=== PATIENT | male | born 1965 | race Caucasian/White ===

== ENCOUNTER 2017-01-30 21:32 | Emergency (ER) | payer MEDICAID ==
[2017-01-30 21:56] LABS: APPEARANCE CLEAR (CLEAR); BILIRUBIN NEGATIVE (NEGATIVE); COLOR STRAW (YELLOW); GLUCOSE 1000 mg/dL (NEGATIVE); KETONE NEGATIVE (NEGATIVE); NITRITE NEGATIVE (NEGATIVE); PROTEIN NEGATIVE (NEGATIVE); SPECIFIC GRAVITY 1.015 (1.005-1.020); UROBILINOGEN NORMAL (NORMAL)
[2017-01-30 21:59] LABS: WHITE CELLS - URINE RARE /hpf (0-5)
== END 2017-01-31 00:10 | disposition home or self-care (01) ==
LOC: D.ER 21:32
PROVIDERS: Family Medicine
DX: E11.9 Type 2 diabetes mellitus without complications (principal); Z91.14 Patient's other noncompliance with medication regimen; F17.200 Nicotine dependence, unspecified, uncomplicated

== ENCOUNTER 2018-06-17 06:24 | Outpatient (CLI) | payer MEDICARE ==
[2018-06-16 12:16] LABS: BASOPHILS 0.3 % (0-2); EOSINOPHILS 2.1 % (0-7); HEMATOCRIT 45.8 % (42.0-54.0); HEMOGLOBIN 16.4 g/dL (13.5-17.5); IMMATURE GRANULOCYTES 0.7 % (0-5); LYMPHOCYTES 28.2 % (15-50); MCH 32.5 pg (26.0-34.0); MCHC 35.8 g/dL (31.0-37.0); MCV 90.7 fL (80.0-100.0); MONOCYTES 11.8 % (2-11); NEUTROPHILS 56.9 % (40-80); PLATELET COUNT 330 10x3/uL (130-400); RBC 5.05 10x6/uL (4.20-6.10); WBC 14.5 10x3/uL (4.8-10.8)
[2018-06-16 12:26] LABS: CALC OSMOLALITY 286 mosm/kg (275-300); CARBON DIOXIDE 27.7 mmol/L (21.0-32.0); CHLORIDE - SERUM 101 mmol/L (98-107); CREATININE - SERUM 0.8 mg/dL (0.6-1.3); GLUCOSE 284 mg/dL (74-106); POTASSIUM - SERUM 4.1 mmol/L (3.5-5.1); SODIUM 139 mmol/L (136-145); UREA NITROGEN 9 mg/dL (7-18); eGFR NON AFRICAN AMERICAN > 90 mL/min (90-120)
[~2018-06-17] VITALS: Ht 193 cm; Wt 111.1 kg
[~2018-06-17 06:24] MED LIST: GLIPIZIDE10 MG PO; MOBIC7.5 MG PO
--- NOTE | 2018-06-17 06:51 | NUR ---
0666 DR AHUJA NOTIFIED OF PT'S WBC OF 14.5 AND IS AWARE THAT PT HAS A PRODUCTIVE COUGH WITH YELLOW SPUTUM. PT STATES THAT HE HAS BEEN ON ABX & COUGH SYRUP FOR A WEEK. PT ALSO HAS A SORE AROUND HIS UMBILICUS OF UNKNOWN ORIGIN THAT IS RED AND BROKEN DOWN AND THIS WAS REPORTED TO .
[2018-06-17 08:11] VITALS: BP 135/75; Ht 193 cm; Wt 111.1 kg
--- NOTE | 2018-06-17 08:32 | NUR ---
[address] AHUJA AND SAID TO GET PT READY FOR SURGERY. 0810 PT COUGHING NON STOP. ANESTHESIA REQUESTED TO SEE PT. FLOYD GARCIA CRNA TO SEE PT. 8260 FLOYD GARCIA CRNA HERE TO TALK TO PATIENT ABOUT SURGERY BEING CANCELLED DUE TO HIS COUGH AND HIGH WBC. WAITING FOR ORDERS
--- NOTE | 2018-06-17 08:52 | NUR ---
[address] AHUJA TO DC IV AND DISCHARGE PT.
--- NOTE | 2018-06-17 08:55 | NUR ---
30558 IV DC'D. PRESSURE HELD UNTIL BLEEDING STOPPED. BANDAID APPLIED. 3852 PT DISCHARGED.
== END 2018-06-17 06:25 | disposition home or self-care (01) ==
LOC: D.OPS 06:24 → EDSTATUS 08:00 → D.OPS 08:59
PROVIDERS: ATTEND Surgery
DX: K43.9 Ventral hernia without obstruction or gangrene (principal); Z53.09 Procedure and treatment not carried out because of other contraindication; Z01.812 Encounter for preprocedural laboratory examination

== ENCOUNTER 2018-09-30 05:30 | Day surgery (SDC) | payer MEDICARE ==
[2018-09-29 10:31] LABS: CALC OSMOLALITY 275 mosm/kg (275-300); CARBON DIOXIDE 30.7 mmol/L (21.0-32.0); CHLORIDE - SERUM 103 mmol/L (98-107); CREATININE - SERUM 0.7 mg/dL (0.6-1.3); POTASSIUM - SERUM 4.4 mmol/L (3.5-5.1); SODIUM 136 mmol/L (136-145); UREA NITROGEN 16 mg/dL (7-18); eGFR NON AFRICAN AMERICAN > 90 mL/min (90-120)
[2018-09-29 10:32] LABS: GLUCOSE 156 mg/dL (74-106)
[2018-09-29 10:36] LABS: BASOPHILS 0.4 % (0-2); EOSINOPHILS 2.8 % (0-7); HEMATOCRIT 48.5 % (42.0-54.0); HEMOGLOBIN 17.3 g/dL (13.5-17.5); IMMATURE GRANULOCYTES 0.4 % (0-5); LYMPHOCYTES 38.8 % (15-50); MCH 32.7 pg (26.0-34.0); MCHC 35.7 g/dL (31.0-37.0); MCV 91.7 fL (80.0-100.0); MEAN PLATELET VOLUME 10.4 fL (7.4-10.4); MONOCYTES 10.4 % (2-11); NEUTROPHILS 47.2 % (40-80); RBC 5.29 10x6/uL (4.20-6.10); RDW 12.6 % (11.5-14.5); WBC 10.4 10x3/uL (4.8-10.8)
[2018-09-29 10:38] LABS: PLATELET COUNT 251 10x3/uL (130-400)
[~2018-09-30] VITALS: Ht 190.5 cm; Wt 122.0 kg
--- NOTE | ~2018-09-30 | OP ---
PATIENT NAME: RADHA GIBSON MEDICAL RECORD: [id number] :61 LOCATION:D.OPS ADMISSION DATE: SURGEON: BENNIE AHUJA MD DATE OF OPERATION: 09/30/2018 PREOPERATIVE DIAGNOSES: 1. Incarcerated ventral hernia. 2. Tobacco dependence syndrome. 3. Diabetes mellitus. POSTOPERATIVE DIAGNOSES: 1. Incarcerated ventral hernia. 2. Tobacco dependence syndrome. 3. Diabetes mellitus. PROCEDURE: Incarcerated ventral hernia repair with 4.3 cm Ventrio mesh. SURGEON: Bennie Ahuja MD REPORT OF PROCEDURE: The patient's abdomen was prepped and draped in sterile fashion. A longitudinal incision was made just above the umbilicus in the midline. Electrocautery was then used to dissect through the subcutaneous tissues. As we came down, we encountered a hernia sac, which had incarcerated omental fat within it. This hernia sac extended far out to the left abdomen. We ended up dissecting this all free and we were able to eviscerate this through the skin and took down all the attachments off of the fascia. The omentum was incarcerated and could not be reduced through the small opening. Using multiple clamp and tie technique, we were able to transect through the omentum near its herniation and this omentum was removed. The fascial defect was about 1.3 cm in greatest diameter. We freed up the fascia above and below the defect and make sure to clean the fascia on its edges. Due to the patient's large size, we elected to go ahead and place a small hernia patch. This hernia patch was 4.3 cm Ventralight. This was inserted in an underlay fashion and sutured down on all 4 sides using interrupted 0 Prolenes. We then irrigated out the wound with normal saline and any bleeding that was found was treated with electrocautery or with 3-0 silk ties. The fascia was then closed transversely overlying the mesh using running 0 Vicryl. The subcutaneous tissues were infused with a total of 10 mL of 0.25% Marcaine with epinephrine and then reapproximated with interrupted 3-0 Vicryls. The skin was closed with running subcutaneous 5-0 Monocryl and dressed appropriately. COMPLICATIONS: None. CONDITION: Stable. ANESTHESIA: General endotracheal and local. BLOOD LOSS: 30 mL. TRANSINT:[id number] Voice Confirmation ID: [id number] DOCUMENT ID: [id number] OPERATIVE REPORT [id number] RADHA GIBSON CHRISTIAN MD CC: JOSUE MORENO DO [id number] DICTATION DATE: 09/30/18904 WASTE REMOVALIST: 09/30/18 1054 [facility] [address] [id number]
[~2018-09-30 05:30] MED LIST changes: +BASAGLAR K100 UNIT/1 SC
[2018-09-30 06:54] VITALS: BP 141/74; Ht 190.5 cm; Wt 122.0 kg
[2018-09-30] MEDS ORDERED: HYDROCODON-ACE1 EA10 PO (08:58)
--- NOTE | 2018-09-30 09:14 | NUR ---
OPA IN AIRWAY ON ADMIT
--- NOTE | 2018-09-30 10:12 | NUR ---
0950-RECD TO ROOM FROM PACU. DROWSY, AROUSES EASILY. TAKING ICE CHIPS. O2 ON AT 2L PER NC. ENCOURAGED TO DEEP BREATHE AND COUGH.
--- NOTE | 2018-09-30 11:19 | NUR ---
1120-DISCHARGE INSTRUCTIONS REVIEWED. IV D/C. DRESSING. 1125-STATES PAIN IS EASING TO A 2. 1126-D/C HOME VIA WHEELCHAIR WITH .
== END 2018-09-30 11:26 | disposition home or self-care (01) ==
LOC: D.OPS 05:30
PROVIDERS: ATTEND Surgery
DX: K43.6 Other and unspecified ventral hernia with obstruction, without gangrene (principal)

== ENCOUNTER 2018-10-03 13:22 | Emergency (ER) | payer MEDICARE ==
[~2018-10-03] VITALS: Ht 190.5 cm; Wt 121.4 kg
[~2018-10-03 13:22] MED LIST changes: +HYDROCODON-ACE1 EA10 PO
[2018-10-03 13:43] VITALS: Ht 190.5 cm; Wt 121.4 kg
[2018-10-03 14:38] LABS: APPEARANCE CLEAR (CLEAR); BILIRUBIN NEGATIVE (NEGATIVE); COLOR YELLOW (YELLOW); GLUCOSE NEGATIVE (NEGATIVE); KETONE NEGATIVE (NEGATIVE); NITRITE NEGATIVE (NEGATIVE); PROTEIN NEGATIVE (NEGATIVE); SPECIFIC GRAVITY 1.015 (1.005-1.020); UROBILINOGEN NORMAL (NORMAL)
[2018-10-03 14:56] LABS: BASOPHILS 0.2 % (0-2); EOSINOPHILS 1.8 % (0-7); HEMATOCRIT 48.5 % (42.0-54.0); HEMOGLOBIN 17.3 g/dL (13.5-17.5); IMMATURE GRANULOCYTES 0.3 % (0-5); LYMPHOCYTES 23.2 % (15-50); MCHC 35.7 g/dL (31.0-37.0); MCV 92.6 fL (80.0-100.0); MEAN PLATELET VOLUME 10.2 fL (7.4-10.4); MONOCYTES 12.6 % (2-11); NEUTROPHILS 61.9 % (40-80); PLATELET COUNT 234 10x3/uL (130-400); RBC 5.24 10x6/uL (4.20-6.10); RDW 12.4 % (11.5-14.5); WBC 15.4 10x3/uL (4.8-10.8)
[2018-10-03 15:07] LABS: APTT 59.5 SECONDS (22.8-39.4); INR 1.26 (0.85-1.17); PROTIME 15.2 SECONDS (11.6-15.0)
[2018-10-03 15:17] LABS: ALBUMIN 3.4 g/dL (3.4-5.0); ALKALINE PHOSPHATASE 64 U/L (46-116); ALT (SGPT) 6 U/L (10-68); BILIRUBIN - TOTAL 0.72 mg/dL (0.2-1.3); CALCIUM 8.7 mg/dL (8.5-10.1); CARBON DIOXIDE 27.4 mmol/L (21.0-32.0); CREATININE - SERUM 0.3 mg/dL (0.6-1.3); PROTEIN - SERUM 6.5 g/dL (6.4-8.2); UREA NITROGEN 17 mg/dL (7-18); eGFR NON AFRICAN AMERICAN > 90 mL/min (90-120)
[2018-10-03 15:30] LABS: CALC OSMOLALITY 277 mosm/kg (275-300); CHLORIDE - SERUM 102 mmol/L (98-107); POTASSIUM - SERUM 4.1 mmol/L (3.5-5.1); SODIUM 138 mmol/L (136-145)
[2018-10-03 15:34] LABS: GLUCOSE 99 mg/dL (74-106)
[2018-10-03] MEDS ORDERED: CLEOCIN HCL300 MG PO (15:36)
[2018-10-03 16:17] VITALS: BP 148/73
== END 2018-10-03 16:18 | disposition home or self-care (01) ==
LOC: D.ER 13:22
PROVIDERS: Family Medicine
DX: L76.82 Other postprocedural complications of skin and subcutaneous tissue (principal)

== ENCOUNTER 2019-06-22 00:03 | Emergency (ER) | payer MEDICARE ==
[~2019-06-22] VITALS: Ht 190.5 cm; Wt 121.4 kg
[~2019-06-22 00:03] MED LIST changes: +CLEOCIN HCL300 MG PO
[2019-06-22 00:07] VITALS: Ht 190.5 cm; Wt 121.4 kg
[2019-06-22] MEDS ORDERED: EC-NAPROSYN500 MG PO (01:19)
[2019-06-22 01:45] VITALS: BP 148/87
== END 2019-06-22 01:45 | disposition home or self-care (01) ==
LOC: D.ER 00:03
DX: M17.11 Unilateral primary osteoarthritis, right knee (principal); E11.9 Type 2 diabetes mellitus without complications; J45.909 Unspecified asthma, uncomplicated; K21.9 Gastro-esophageal reflux disease without esophagitis; Z72.0 Tobacco use; Z79.4 Long term (current) use of insulin; Z79.84 Long term (current) use of oral hypoglycemic drugs

== ENCOUNTER 2019-12-10 17:20 | Emergency (ER) | payer MEDICARE ==
[~2019-12-10 17:20] MED LIST changes: +EC-NAPROSYN500 MG PO
[2019-12-10 17:35] VITALS: Ht 190.5 cm
[2019-12-10 18:13] LABS: BASOPHILS 0.5 % (0-2); EOSINOPHILS 4.3 % (0-7); HEMATOCRIT 51.4 % (42.0-54.0); HEMOGLOBIN 17.7 g/dL (13.5-17.5); IMMATURE GRANULOCYTES 0.3 % (0-5); LYMPHOCYTES 31.5 % (15-50); MCH 32.4 pg (26.0-34.0); MCHC 34.4 g/dL (31.0-37.0); MCV 94.1 fL (80.0-100.0); MEAN PLATELET VOLUME 10.3 fL (7.4-10.4); MONOCYTES 14.9 % (2-11); NEUTROPHILS 48.5 % (40-80); PLATELET COUNT 237 10x3/uL (130-400); RBC 5.46 10x6/uL (4.20-6.10); RDW 12.8 % (11.5-14.5); WBC 10.7 10x3/uL (4.8-10.8)
[2019-12-10 18:25] LABS: CALC OSMOLALITY 286 mosm/kg (275-300); CALCIUM 8.9 mg/dL (8.5-10.1); CARBON DIOXIDE 30.3 mmol/L (21.0-32.0); CHLORIDE - SERUM 102 mmol/L (98-107); GLUCOSE 250 mg/dL (74-106); POTASSIUM - SERUM 4.3 mmol/L (3.5-5.1); SODIUM 139 mmol/L (136-145); UREA NITROGEN 14 mg/dL (7-18); eGFR NON AFRICAN AMERICAN 82 mL/min (90-120)
[2019-12-10 18:42] LABS: ALBUMIN 3.8 g/dL (3.4-5.0); ALKALINE PHOSPHATASE 88 U/L (30-120); ALT (SGPT) 44 U/L (10-68); BILIRUBIN - TOTAL 0.44 mg/dL (0.2-1.3); CKMB 1.8 U/L (0.0-3.6); CREATINE KINASE 96 UL (21-232); PRO BNP 30 pg/mL (0-125); PROTEIN - SERUM 7.2 g/dL (6.4-8.2)
[2019-12-10 18:43] LABS: TROPONIN-I < 0.017 ng/mL (0.000-0.060)
[2019-12-10] MEDS ORDERED: PROAIR HFA8.5 G1 INH (19:38)
[2019-12-10 20:38] VITALS: BP 170/98
== END 2019-12-10 20:38 | disposition home or self-care (01) ==
LOC: D.ER 17:20
PROVIDERS: Family Medicine
DX: J45.901 Unspecified asthma with (acute) exacerbation (principal); E11.9 Type 2 diabetes mellitus without complications; K21.9 Gastro-esophageal reflux disease without esophagitis; Z79.84 Long term (current) use of oral hypoglycemic drugs; R06.02 Shortness of breath; R05 Cough

== ENCOUNTER 2020-06-20 05:55 | Emergency (ER) | payer MEDICARE ==
[~2020-06-20] VITALS: Ht 190.5 cm; Wt 116.4 kg
[~2020-06-20 05:55] MED LIST changes: +PROAIR HFA8.5 G1 INH
[2020-06-20 06:04] VITALS: Ht 190.5 cm; Wt 116.4 kg
[2020-06-20] MEDS ORDERED: METHOCARBAMOL500 MG PO (06:24)
[2020-06-20 08:11] VITALS: BP 129/90
== END 2020-06-20 08:12 | disposition home or self-care (01) ==
LOC: D.ER 05:55
DX: M54.5 Low back pain (principal); W19.XXXA Unspecified fall, initial encounter; Y93.9 Activity, unspecified; Y92.9 Unspecified place or not applicable; J45.909 Unspecified asthma, uncomplicated; K21.9 Gastro-esophageal reflux disease without esophagitis; E11.9 Type 2 diabetes mellitus without complications; Z79.84 Long term (current) use of oral hypoglycemic drugs

== ENCOUNTER 2020-07-02 07:35 | Emergency (ER) | payer MEDICARE ==
[~2020-07-02] VITALS: Ht 190.5 cm; Wt 116.4 kg
[~2020-07-02 07:35] MED LIST changes: +METHOCARBAMOL500 MG PO
[2020-07-02 07:39] VITALS: Ht 190.5 cm; Wt 116.4 kg
[2020-07-02] MEDS ORDERED: PREDNISONE20 MG PO (08:52)
[2020-07-02] MEDS ORDERED: ULTRAM50 MG PO (08:52)
[2020-07-02 09:00] VITALS: BP 120/78
== END 2020-07-02 09:00 | disposition home or self-care (01) ==
LOC: D.ER 07:35
DX: M54.5 Low back pain (principal); G89.29 Other chronic pain; E11.9 Type 2 diabetes mellitus without complications; J45.909 Unspecified asthma, uncomplicated; Z72.0 Tobacco use; Z79.84 Long term (current) use of oral hypoglycemic drugs

== ENCOUNTER 2020-09-18 04:56 | Emergency (ER) | payer MEDICARE ==
[~2020-09-18] VITALS: Ht 190.5 cm; Wt 116.4 kg
[~2020-09-18 04:56] MED LIST changes: +PREDNISONE20 MG PO; +ULTRAM50 MG PO
[2020-09-18 05:01] VITALS: BP 120/90; Ht 190.5 cm; Wt 116.4 kg
== END 2020-09-18 05:44 | disposition home or self-care (01) ==
LOC: D.ER 04:56
DX: M54.5 Low back pain (principal); M48.061 Spinal stenosis, lumbar region without neurogenic claudication; E11.9 Type 2 diabetes mellitus without complications; J45.909 Unspecified asthma, uncomplicated; Z79.84 Long term (current) use of oral hypoglycemic drugs